=== PATIENT | female | born 1955 | race Caucasian/White ===

== ENCOUNTER 2017-01-25 08:40 | Emergency (ER) | payer OTHER ==
[~2017-01-25] VITALS: Ht 157.5 cm; Wt 110.1 kg
[~2017-01-25 08:40] MED LIST: ANORO ELLIPTA1 EACH IH; ASPIR 8181 M1 PO; BREO ELLIPTA I1 EACH IH; DICLOFENAC SOD100 MG PO; GABAPENTIN400 MG PO; MOTRIN800 MG PO; MULTI-DAY VITA1 EACH PO; NABUMETONE750 MG PO; NORCO 5/3251 TABLET PO; PRILOSEC40 MG PO; PROAIR HFA8.5 GM IH; PROVENTIL2.5 MG/3 M IH; SF 5000 PLUS51 GM DT; SYMBICORT60 INHALAT IH; Symbicort 160-4.5 mc IH; TUDORZA PRESS400 MCG IH; VALACYCLOVIR1000 MG PO; VITAMIN D250000 UNIT PO; Vicodin,Norco 5/325 PO; ZYRTEC10 M3 PO; [UNRECOGNIZED DRUG - OTHER]
[2017-01-25 09:26] LABS: BASOPHIL COUNT 0.1 K/uL (0-0.1); EOSINOPHIL (%) 2.4 % (0-5); EOSINOPHIL COUNT 0.2 K/uL (0-0.3); IMMATURE GRANULOCYTE (%) 1.4 % (0.0-0.7); IMMATURE GRANULOCYTE COUNT 0.1 K/uL; LYMPHOCYTE COUNT 1.8 K/uL (1.0-2.8); MCH 30.4 PG (29.0-34.0); MCHC 31.6 G/DL (30.0-36.0); MCV 96.2 FL (83-99); MEAN PLAT.VOLUME 9.9 uM^3 (9.5-12.4); MONOCYTE (%) 4.7 % (3-12); MONOCYTE COUNT 0.5 K/uL (0-0.8); NEUTROPHIL (%) 72.1 % (45-76); PLATELET COUNT 305 K/uL (156-360); RBC DIS.WIDTH-CV 13.7 % (11.8-14.6); RBC DIS.WIDTH-SD 49.1 % (39-53); RED BLOOD COUNT 4.47 M/uL (3.80-5.20); WHITE BLOOD COUNT 9.7 K/uL (4.1-10.2)
[2017-01-25 09:44] LABS: ANION GAP 11 MEQ/L (2-14); CHLORIDE 103 MEQ/L (99-109); POTASSIUM 3.6 MEQ/L (3.7-5.4); SAMPLE HEMOLYSIS CHECK 0; SAMPLE ICTERIC CHECK 0; SAMPLE LIPEMIA CHECK 0; SODIUM 143 MEQ/L (136-147)
[2017-01-25 09:49] LABS: GFR ESTIMATE (CALCULATED) > 59 mL/min/; GLUCOSE 94 mg/dL (70-99); UREA NITROGEN (BUN) 13 mg/dL (9-23)
[2017-01-25 09:53] LABS: TROP-I INTERPRETATION NEGATIVE; TROPONIN-I < 0.01 ng/mL (0.0-0.30)
[2017-01-25 12:14] LABS: TROP-I INTERPRETATION NEGATIVE; TROPONIN-I < 0.01 ng/mL (0.0-0.30)
[2017-01-25 13:13] VITALS: BP 127/76
== END 2017-01-25 13:13 | disposition home or self-care (01) ==
LOC: EME 08:40
PROVIDERS: Emergency Medicine
DX: R07.89 Other chest pain (principal); J44.9 Chronic obstructive pulmonary disease, unspecified; M79.7 Fibromyalgia; E78.5 Hyperlipidemia, unspecified; K21.9 Gastro-esophageal reflux disease without esophagitis; Z86.73 Personal history of transient ischemic attack (TIA), and cerebral infarction without residual deficits; Z85.118 Personal history of other malignant neoplasm of bronchus and lung; Z87.891 Personal history of nicotine dependence
CPT/HCPCS: 71010; 80048; 84484; 85025; 93005; 99281; 99284

== ENCOUNTER → 2017-06-25 | Outpatient (CLI) | payer OTHER ==
[~2017-06-25] VITALS: Ht 157.5 cm; Wt 101.0 kg
[~2017-06-25] MED LIST changes: +DAILY VALUE1 EACH PO; +RANITIDINE HCL300 M1 PO; +VENTOLIN HFA18 GM IH
[2017-06-27 17:13] LABS: Flow Number of Markers 22 (()); Flow Spec Viability 80 % (())
== END | disposition home or self-care (01) ==
LOC: OPR 09:30 → EDSTATUS 10:00 → OPR 07-09 09:00
PROVIDERS: Radiology Diagnostic Radiology
PROC: 07B23ZX Excision of Left Neck Lymphatic, Percutaneous Approach, Diagnostic (ICD-10-PCS; principal; 2017-06-25)
DX: R59.1 Generalized enlarged lymph nodes (principal); R94.8 Abnormal results of function studies of other organs and systems; Z85.118 Personal history of other malignant neoplasm of bronchus and lung; Z92.21 Personal history of antineoplastic chemotherapy; J44.9 Chronic obstructive pulmonary disease, unspecified; G47.33 Obstructive sleep apnea (adult) (pediatric); K21.9 Gastro-esophageal reflux disease without esophagitis; M25.511 Pain in right shoulder; B00.9 Herpesviral infection, unspecified; K76.89 Other specified diseases of liver; Z79.899 Other long term (current) drug therapy; Z87.891 Personal history of nicotine dependence; Z80.0 Family history of malignant neoplasm of digestive organs; Z82.49 Family history of ischemic heart disease and other diseases of the circulatory system
CPT/HCPCS: 77012; 88184 90; 88185 90; 88189 90; 88305; J3010